=== PATIENT | male | born 1995 | race Caucasian/White ===

== ENCOUNTER 2021-07-16 08:54 | Emergency (ER) | payer OTHER, SELFPAY ==
[2021-07-16] VITALS (12 sets, daily range): BP systolic 123–148; BP diastolic 88–104; PULSE 80–90; RESP 14–19; TEMP 36.4; O2SAT 98–100
--- NOTE | ~2021-07-16 | CT_ITS ---
EXAMINATION: CT brain wo con DATE: 07/16/2021 09:41 INDICATION: Numbness in the arms and legs. Acute onset of peripheral neuropathy. TECHNIQUE: Computed tomography (CT) of the head was performed without intravenous contrast. The mA wa s adjusted according to patient size. Iterative reconstruction technique was employed. The dose-lengt h product was 908.00 mGy-cm. COMPARISON: None FINDINGS: There is no intracranial hemorrhage, acute infarction, or abnormal intracranial mass lesion . The ventricles are normal in size. There is mucosal thickening in right ethmoid sinus. The mastoid air cells are normal. The orbits are normal. IMPRESSION: 1. Normal brain. Reviewed, dictated and finalized at location A. IMPRESSION: 1. Normal brain.
--- NOTE | 2021-07-16 09:27 | ECG_ITS ---
Measurements Intervals [place] Rate: 69 P: 41 NM: 165 QRS: 60 QRSD: 105 T: 21 QT: 392 QTc: 421 Interpretive Statements SINUS RHYTHM NONSPECIFIC T-WAVE ABNORMALITY NO PREVIOUS ECG AVAILABLE FOR COMPARISON Electronically Signed On 07-16-2021 13:13:20 CDT by Leti Weathers M.D.
--- NOTE | 2021-07-16 09:33 | ED.NEUROSD ---
HPI - Neuro Symptoms/Deficit General Chief Complaint: Neuro Symptoms/Deficit Stated Complaint: numbness to extremities Time Seen by Provider: 07/16/21 08:58 History of Present Illness HPI Narrative: 25-year-old male in no acute distress presents the emergency room with acute onset of numbness and tingling in his hands and his feet. Patient states that symptoms started yesterday morning after he went out for a run. Patient reports taking her gabapentin with no relief. Patient states that the numbness and tingling are more prominent with the left extremities. Patient states he feels like there is sand in his feet. Denies injury or trauma. Patient states that he does not use excessive alcohol. Patient denies drug use Related Data Allergies Allergy/AdvReac Type Severity Reaction Status Date / Time No Known Allergies Allergy Verified 07/16/21 09:07 Review of Systems Review of Systems: CONSTITUTIONAL: Denies fever, chills, or sweats. EYES: Denies visual changes, redness, or discharge. ENT: Denies rhinorrhea, congestion, sore throat, or otalgia. CARDIOVASCULAR: Denies chest pain, palpitations, or edema. RESPIRATORY: Denies cough or dyspnea. GASTROINTESTINAL: Denies abdominal pain, nausea, vomiting, or diarrhea. GENITOURINARY: Denies dysuria or hematuria. SKIN: Denies rash or itching. MUSCULOSKELETAL: Denies back pain, joint pain, or myalgia. NEUROLOGIC: Denies headache. Reports numbness and tingling bilateral extremities, left side greater than right PSYCHIATRIC: Denies anxiety or depression. Exam Narrative: GENERAL: Well-appearing, well-nourished, and in no acute distress. HEAD: Normocephalic, atraumatic. EYES: PERRLA and EOMI. ENT: Nares clear, no rhinorrhea or epistaxis. Mucous membranes moist. Oropharynx without tonsillar hypertrophy exudate or other lesions. Bilateral TMs pearly villarreal nonbulging NECK: Supple. No adenopathy or masses. No carotid bruits or JVD CHEST: Clear to auscultation. No respiratory distress. No wheezes rales or rhonchi HEART: Regular rate and rhythm. No murmur heard. Normal peripheral pulses. ABDOMEN: Soft, nontender, nondistended, normal active bowel sounds. EXTREMITIES: Normal range of motion. No edema. SKIN: Warm, dry, no rash. NEURO: No focal deficits. Alert and oriented x3. CN 2 through 12 grossly intact, cerebellar exam normal, strength in upper extremities 5/5, strength in lower extremities 5/5, altered sensation with light touch in multiple dermatomes PSYCH: Normal mood and affect. Course Vital Signs Vital signs: Vital Signs Temperature 36.4 C 07/16/21 09:00 Pulse Rate 82 07/16/21 09:00 Blood Pressure 148/104 H 07/16/21 09:00 Pulse Oximetry 99 07/16/21 09:00 Temperature 36.4 C 07/16/21 09:00 Pulse Rate 82 07/16/21 09:00 Blood Pressure 148/104 H 07/16/21 09:00 Pulse Oximetry 99 07/16/21 09:00 MDM - Neuro Symptoms/Deficit MDM Narrative Medical decision making narrative: 25-year-old male presents the emergency room complaints of numbness and tingling in his arms and legs. Patient states that with acute onset after exercising yesterday. Patient states that he has taken 2 doses of gabapentin with no relief of symptoms. CBC, CMP, troponin, CRP, CK, urine, and UDS were all unremarkable. EKG showed normal sinus rhythm. Head CT was negative for any intracranial abnormalities. Will refer patient to neurology for further work-up. Differential Diagnosis Differential diagnosis: Likely peripheral neuropathy Medical Records Attestation: I reviewed the patient's medical records. Lab Data Attestation: I reviewed the patient's lab results. Result diagrams: 07/16/21 10:13 07/16/21 10:13 Labs: Lab Results 07/16/21 07/16/21 07/16/21 Range/Units 10:13 10:13 10:13 WBC 6.2 (4.5-10.0) K/mm3 RBC 4.51 L (4.6-6.20) M/mm3 Hgb 14.2 (14.0-18.0) g/dL Hct 42.8 (42.0-52.0) % MCV 94.9 (80-100) fl MCH 31.5 (26-34) pg M
[2021-07-16 10:29] LABS: Basophils Absolute Auto 0.1 K/mm3 (0.0-0.1); Eosinophils Absolute Auto 0.2 K/mm3 (0-0.3); Eosinophils Percent Auto 2.4 % (0-4.4); Hematocrit 42.8 % (42.0-52.0); Hemoglobin 14.2 g/dL (14.0-18.0); Immature Granulocyte Absolute 0.01 K/mm3 (0.00-0.031); Immature Granulocyte Percent A 0.2 % (0-0.5); Lymphocytes Absolute Auto 2.98 K/mm3 (0.9-3.2); Lymphocytes Percent Auto 48.1 % (18.3-44.2); Mean Corpuscular HGB Conc 33.2 g/dl (32-36); Mean Corpuscular Hemoglobin 31.5 pg (26-34); Mean Corpuscular Volume 94.9 fl (80-100); Mean Platelet Volume 9.9 fl (7.4-10.4); Monocytes Absolute Auto 0.5 K/mm3 (0.1-0.6); Monocytes Percent Auto 8.1 % (2.6-8.5); Neutrophils Absolute Auto 2.5 K/mm3 (1.3-6.7); Neutrophils Percent Auto 40.2 % (45.5-73.1); Platelet Count Result 178 k/mm3 (150-375); Red Blood Count 4.51 M/mm3 (4.6-6.20); Red Cell Distribution Width 12.5 % (11.5-14.5); White Blood Count 6.2 K/mm3 (4.5-10.0)
[2021-07-16 10:31] LABS: Add Urine Microscopic? NO; Appearance Urine Clear (Clear); Bilirubin Urine Negative (Negative); Blood Urine Negative (Negative); Color Urine Colorless (Yellow); Glucose Urine UA Negative (Negative); Ketones Urine Negative (Negative); Leukocyte Esterase Ur Negative LEU/UL (Negative); Nitrate Urine Negative (Negative); Protein Urine Negative (Negative); Urobilinogen Urine Negative mg/dL (<2.0)
[2021-07-16 10:42] LABS: Alanine Aminotransferase 97 U/L (4-50); Albumin Level 4.6 g/dL (3.5-5.1); Alkaline Phosphatase 50 U/L (38-126); Anion Gap 6 mmol/L (8-16); Aspartate Amino Transferase 56 U/L (17-59); Bilirubin,Total 0.6 mg/dL (0.2-1.3); Blood Urea Nitrogen 9 mg/dL (9-20); Calcium 9.2 mg/dL (8.4-10.2); Carbon Dioxide 29 mmol/L (22-30); Chloride 105 mmol/L (98-107); Estimated CRCL calculation 134 ml/min; Estimated Glomerular Filt Rate > 60; Glucose 103 mg/dL (65-110); Potassium 4.2 mmol/L (3.4-5.0); Sodium 140 mmol/L (137-145)
[2021-07-16 10:43] LABS: Specific Grav Ur 1.001 (1.001-1.035)
[2021-07-16 10:44] LABS: CRP 0.7 mg/dL (<1.0)
[2021-07-16 10:46] LABS: Amphetamine Screen Urine Negative (Negative); Barbiturate Screen Urine Negative (Negative); Benzodiazepines Screen Urine Negative (Negative); Cannabinoid Screen Urine Negative (Negative); Cocaine Screen Urine Negative (Negative); Methadone Screen Urine Negative (Negative); Opiate Screen Urine Negative (Negative); Phencyclidine Screen Urine Negative (Negative)
[2021-07-16 10:53] LABS: Troponin I < 0.012 ng/mL (0.000-0.034)
[2021-07-16 12:07] LABS: Creatine Kinase 115 U/L (55-170)
== END 2021-07-16 12:55 | disposition home or self-care (01) ==
PROVIDERS: Emergency Provider Nurse Practitioner Family; PCP Hospitalist
DX: R20.2 Paresthesia of skin (principal)
CPT/HCPCS: 36415; 70450; 80053; 80307; 81003; 82550; 84443; 84484; 85025; 86140; 93005; 99284